=== PATIENT | female | born 1990 | race Caucasian/White ===

== ENCOUNTER → 2017-11-29 11:21 | Outpatient (CLI) | payer OTHER, MEDICAID, SELFPAY ==
[2017-11-29 12:04] LABS: Add Manual Diff / Slide Review NO; Basophils Percent Auto 1.1 % (0-2); Eosinophils Percent Auto 3.3 % (2-4); Hematocrit 43.3 % (36-46); Hemoglobin 14.7 g/dL (12.0-16.0); Lymphocytes Percent Auto 26.6 % (25-40); Mean Corpuscular HGB Conc 33.9 % (30-36); Mean Corpuscular Volume 91.6 fL (80-100); Monocytes Percent Auto 7.7 % (3-14); Neutrophils Absolute Auto 3600 /uL (3000-5900); Neutrophils Percent Auto 61.3 % (50-75); Platelet Count 256 X10^3/uL (150-400); Red Blood Cell Count 4.73 X10^6/uL (4.0-5.2); Red Cell Distribution Width 12.6 % (11.6-14.8); White Blood Cell Count 5.9 X10^3/uL (4.5-11.0)
[2017-11-29 12:27] LABS: Erythrocyte Sedimentation Rate 2 MM/HR (0-20)
[2017-11-29 12:55] LABS: Alanine Aminotransferase 17 IU/L (9-52); Albumin 4.7 g/dL (3.5-5.0); Alkaline Phosphatase 49 U/L (38-126); Aspartate Aminotransferase 18 IU/L (14-36); BUN Creatinine Ratio 16.3 (6-22); Bilirubin Total 0.6 mg/dL (0.2-1.3); Blood Urea Nitrogen 13 mg/dL (7-17); Calcium 9.8 mg/dL (8.4-10.2); Carbon Dioxide 31 mmol/L (22-32); Chloride 103 mmol/L (98-107); Estimated Glomerular Filt Rate > 60.0 mL/min (>60); Globulin 2.3 g/dL (1.7-4.1); Glucose 90 mg/dL (70-100); HEMOLYSIS < 15 (0-50); Potassium 4.6 mmol/L (3.4-5.1); Sodium 146 mmol/L (137-145)
[2017-11-29 13:02] LABS: C-Reactive Protein Quant < 0.5 mg/dL (<1.0); Rheumatoid Factor < 8.6 IU/mL (<12.0)
[2017-11-29 13:23] LABS: Thyroid Stimulating Hormone 1.12 uIU/mL (0.47-4.68)
[2017-12-04 08:10] LABS: ANA Screen NEGATIVE (Negative); DNA Antibody Crithidia IFA NEGATIVE (Negative); Rheumatoid Factor <14 IU/mL; Sjogren Antiboday SS-A <1.0 NEG AI (<1.0 NEGATIVE); Sjogren Antiboday SS-B <1.0 NEG AI (<1.0 NEGATIVE); Sm Antibody <1.0 NEG AI (<1.0 NEGATIVE); Sm/RNP Antibody <1.0 NEG AI (<1.0 NEGATIVE)
== END ==
PROVIDERS: PCP Family Medicine; Visit Provider Family Medicine
DX: M54.2 Cervicalgia (principal)
CPT/HCPCS: 36415; 80053; 84443; 85025; 85651; 86038; 86140; 86430

== ENCOUNTER → 2018-01-10 19:07 | Outpatient (CLI) | payer OTHER, MEDICAID, SELFPAY | PROVIDERS: PCP Family Medicine; Visit Provider Physician Assistant | DX: S60.420A Blister (nonthermal) of right index finger, initial encounter (principal) | CPT/HCPCS: 87070; 87075; 87077; 87147; 87186; 87205 ==

== ENCOUNTER → 2018-06-06 09:56 | Outpatient (CLI) | payer OTHER, MEDICAID, SELFPAY ==
--- NOTE | 2018-06-06 10:33 | DI.RAD.S_ITS ---
PROCEDURE: XR LUMBAR SPINE 2-3V INDICATIONS: pain TECHNIQUE: 4 views of the lumbar spine were acquired. COMPARISON: [facility], , L-SPINE 2-3 VIEWS, 05/07/2014, 17:10. FINDINGS: Bones: No fracture or focal osseous destruction. The disc spaces appear grossly preserved. There is minimal levocurvature which could be positional. Soft tissues: Overlying bowel gas pattern is normal. No suspicious soft tissue calcifications. IMPRESSION: Overall, unremarkable lumbar spine as above. Dictated by: Ashwin Patel M.D. on 06/06/2018 at 12:23 Approved by: Ashwin Patel M.D. on 06/06/2018 at 12:26
[2018-06-06 10:38] LABS: Add Manual Diff / Slide Review NO; Basophils Absolute Auto 100 /uL (0-100); Eosinophils Absolute Auto 300 /uL (0-450); Eosinophils Percent Auto 4.2 % (2-4); Hematocrit 46.5 % (36-46); Hemoglobin 15.7 g/dL (12.0-16.0); Lymphocytes Absolute Auto 1800 /uL (1100-4500); Lymphocytes Percent Auto 25.7 % (25-40); Mean Corpuscular HGB Conc 33.8 % (30-36); Mean Corpuscular Hemoglobin 30.9 PG (26-34); Mean Corpuscular Volume 91.3 fL (80-100); Monocytes Absolute Auto 500 /uL (0-900); Monocytes Percent Auto 6.7 % (3-14); Neutrophils Absolute Auto 4400 /uL (1500-7000); Neutrophils Percent Auto 62.4 % (50-75); Platelet Count 259 X10^3/uL (150-400); Red Blood Cell Count 5.09 X10^6/uL (4.0-5.2); Red Cell Distribution Width 12.4 % (11.6-14.8); White Blood Cell Count 7.1 X10^3/uL (4.5-11.0)
[2018-06-06 11:13] LABS: Alanine Aminotransferase 21 IU/L (9-52); Albumin 4.8 g/dL (3.5-5.0); Albumin Globulin Ratio 1.8 (1.0-2.8); Alkaline Phosphatase 55 U/L (38-126); Amylase 54 U/L (30-110); Aspartate Aminotransferase 15 IU/L (14-36); BUN Creatinine Ratio 14.4 (6-22); Bilirubin Total 0.6 mg/dL (0.2-1.3); Blood Urea Nitrogen 13 mg/dL (7-17); Calcium 9.9 mg/dL (8.4-10.2); Carbon Dioxide 30 mmol/L (22-32); Chloride 100 mmol/L (98-107); Estimated Glomerular Filt Rate > 60.0 mL/min (>60); Globulin 2.7 g/dL (1.7-4.1); Glucose 83 mg/dL (70-100); HEMOLYSIS < 15 (0-50); Lipase 79 U/L (23-300); Potassium 5.2 mmol/L (3.4-5.1); Sodium 140 mmol/L (137-145); Total Protein 7.5 g/dL (6.3-8.2)
== END ==
PROVIDERS: PCP Family Medicine; Visit Provider Family Medicine
DX: R10.9 Unspecified abdominal pain (principal)
CPT/HCPCS: 36415; 72100; 80053; 82150; 83013; 83690; 85025

== ENCOUNTER → 2018-06-07 08:42 | Outpatient (CLI) | payer OTHER, MEDICAID, SELFPAY ==
--- NOTE | 2018-06-07 08:43 | DI.US.S_ITS ---
PROCEDURE: US ABDOMEN COMPLETE INDICATIONS: ABDOMINAL PAIN TECHNIQUE: Real-time scanning was performed of the abdominal and retroperitoneal organs, with image documentation. COMPARISON: [facility], US, ABDOMEN COMPLETE, 04/14/2013, 14:44. FINDINGS: Liver: Liver is normal in size and homogeneous in echotexture. Gallbladder: There is no gallstone. No gallbladder wall thickening or pericholecystic fluid. No sonographic Esparza's sign. Biliary ducts: Intrahepatic bile ducts are non-dilated. Extrahepatic bile duct caliber measures 5 mm. Normal is 6-7 mm or less in diameter, or 10 mm or less post-cholecystectomy. Pancreas: Visualized portions of the pancreas are sonographically normal. Spleen: Spleen is normal in size and homogeneous in echotexture. Kidneys: Kidneys are normal in size and echotexture. Right kidney measures 11 cm long; left kidney measures 11.6 cm long. No hydronephrosis or nephrolithiasis. No solid masses. Aorta: Visualized aorta is normal in caliber at less than 3 cm. Iliacs: Proximal common iliac arteries are normal in caliber at less than 2.5 cm. IVC: Intrahepatic inferior vena cava is patent. Miscellaneous: No free abdominal fluid. IMPRESSION: Unremarkable ultrasound examination of abdomen. No finding to explain patient's symptoms. Dictated by: Joe Emmanuel M.D. on 06/07/2018 at 10:44 Approved by: Joe Emmanuel M.D. on 06/07/2018 at 10:45
== END ==
PROVIDERS: PCP Family Medicine; Visit Provider Family Medicine
DX: R10.9 Unspecified abdominal pain (principal)
CPT/HCPCS: 76700

== ENCOUNTER 2018-06-30 19:29 | Emergency (ER) | payer OTHER, MEDICAID, SELFPAY ==
[2018-06-30 19:57] VITALS: BP 115/75; PULSE 85; RESP 18; TEMP 36.6; O2SAT 100; BMI 24.5
--- NOTE | 2018-06-30 20:51 | DI.RAD.S_ITS ---
PROCEDURE: XR ABDOMEN MIN 2V INDICATIONS: bloating pain nausea TECHNIQUE: 2 views of the abdomen were acquired. COMPARISON: None. FINDINGS: Surgical changes and devices: None. Bowel: No pneumoperitoneum. The bowel gas pattern is normal. Soft tissues: No masses; visualized solid organ contours appear normal in size. No suspicious abdominal calcifications. Bones: No suspicious bony abnormalities. IMPRESSION: No acute process. Dictated by: Serafin Addison M.D. on 06/30/2018 at 21:12 Approved by: Serafin Addison M.D. on 06/30/2018 at 21:12
--- NOTE | 2018-06-30 21:51 | ED_ITS ---
HPI - Female Genitourinary General Chief complaint: Urogenital-Female Stated complaint: States Tubal Time Seen by Provider: 06/30/18 20:39 Source: patient Mode of arrival: ambulatory Limitations: no limitations History of Present Illness HPI Narrative: Patient is a 27-year-old female presents with abdominal bloating. She says she has a tubal ligation and she is 10 days late on her menstrual period. She also feels like her breasts are lactating. She has had a home test which are negative. She has no fever chills nausea or vomiting. She is wondering what is going on with her. Related Data Home Medications Medication Instructions Recorded Confirmed albuterol sulfate HFA 90 2 puff INHALATION Q4H PRN 08/14/17 06/12/18 mcg/actuation aerosol inhaler inhalation Previous Rx's Medication Instructions Recorded cyclobenzaprine 5 mg PO QHS PRN #30 tab 10/24/16 gabapentin 100 mg capsule 100 mg PO .TIDP #90 cap 11/29/17 ibuprofen 600 mg tablet 600 mg PO Q8H #60 tab 02/08/18 lamotrigine 200 mg tablet 200 mg PO QDAY #30 tab 04/18/18 alprazolam 0.25 mg tablet See Rx Instructions PO .COMPLEX 05/21/18 PRN #60 tab hydrocodone 5 mg-acetaminophen 325 1 - 2 tab PO Q6HP PRN #30 tab 06/05/18 mg tablet triamcinolone acetonide 0.1 % 1 applictn TOP BID #15 gram 06/06/18 topical cream hydroxyzine HCl 25 mg tablet 25 mg PO TID-QID PRN #90 tab 06/12/18 Allergies Allergy/AdvReac Type Severity Reaction Status Date / Time promethazine [PROMETHAZINE] Allergy Severe panic Verified 06/30/18 19:56 attach citalopram [CITALOPRAM] Allergy Mild INCREASE Verified 06/30/18 19:56 ANXIETY/ IRRITABLE droperidol [DROPERIDOL] Allergy Mild UNKNOWN Verified 06/30/18 19:56 nifedipine [NIFEDIPINE] Allergy Mild HEADACHE, Verified 06/30/18 19:56 VOMITING red dye [RED DYE] Allergy Mild N & V, Verified 06/30/18 19:56 MIGRAINE, HIVES terbutaline [TERBUTALINE] Allergy Mild VOMITING, Verified 06/30/18 19:56 HEADACHE codeine [CODEINE] Allergy Unknown unknonw Verified 06/30/18 19:56 [facility] Surgical History Status post dilation and curettage Status post dilation and curettage (~2007) Status post dilation and curettage (~2011) Status post laparoscopy (02/25/16) Status post tubal ligation Family History Mother Hypothyroid Hypertension Grandmother Breast cancer Colon cancer Social History number of children: 4 household members: spouse pets and animals: No education level: other seatbelt use: always helmet use: Yes water heater temp set < 120 deg: Yes working smoke detector in home: Yes fire extinguisher in home: Yes carbon monox detector in home: No firearms in home: No Smoking Status: Current every day smoker alcohol intake: current substance use type: does not use Family History Mother Hypothyroid Hypertension Grandmother Breast cancer Colon cancer Social History number of children: 4 household members: spouse pets and animals: No education level: other seatbelt use: always helmet use: Yes water heater temp set < 120 deg: Yes working smoke detector in home: Yes fire extinguisher in home: Yes carbon monox detector in home: No firearms in home: No Smoking Status: Current every day smoker alcohol intake: current substance use type: does not use Exam Initial Vital Signs Initial Vital Signs: Vital Signs Temperature 97.8 F 06/30/18 19:57 Pulse Rate 85 06/30/18 19:57 Respiratory Rate 18 06/30/18 19:57 Blood Pressure 115/75 06/30/18 19:57 Pulse Oximetry 100 06/30/18 19:57 GENERAL: Well-appearing, well-nourished and in no acute distress. HEENT: Head atraumatic,EOMI, pupils reactive, CHEST: The of breast have nipple piercings but no active or discharge from nipples. CARDIOVASCULAR: Regular rate and rhythm without murmurs, rubs or gallops. RESPIRATORY: Breath sounds equal bilaterally, no wheezes rales or rhonchi. ABDOMEN: Soft, pre mild lower abdominal tenderness no localization guarding or rebound EXTREMITIES: Normal range of motion, no clubbing or edema. Neurovascularly intact NEUROLOGICAL: Alert and oriented x4.Normal gait and speech. SKIN: Warm, dry, no laceration, no petechiae, no rashes or lesions. Course Orders Ordered: ED Orders 06/30/18 20:51 XR abdomen min 2V Stat Vital Signs - 8 hr 06/30/18 19:57 06/30/18 22:13 Temperature 97.8 F Pulse Rate 85 78 Respiratory Rate 18 14 Blood Pressure 115/75 Blood Pressure [Right Arm] 104/63 Pulse Oximetry 100 99 MDM - Female Genitourinary Lab Data Point of Care Testing Test Results Negative Urine Dip Bedside Urine Glucose Negative Bedside Urine Bilirubin - Negative Bedside Urine Ketone - Negative Urine Specific Elton 1.020 Bedside Urine Occult Blood - Negative Bedside Urine pH 7.0 Bedside Urine Protein - Negative Bedside Urine Urobilinogen - Negative Bedside Urine Nitrite - Negative Bedside Urine Leukocytes - Negative Esterase Imaging Data Abdominal x-ray: Radiologist's impression: PROCEDURE: XR ABDOMEN MIN 2V INDICATIONS: bloating pain nausea TECHNIQUE: 2 views of the abdomen were acquired. COMPARISON: None. FINDINGS: Surgical changes and devices: None. Bowel: No pneumoperitoneum. The bowel gas pattern is normal. Soft tissues: No masses; visualized solid organ contours appear normal in size. No suspicious abdominal calcifications. Bones: No suspicious bony abnormalities. IMPRESSION: No acute process. Dictated by: Serafin Addison M.D. on 06/30/2018 at 21:1 MDM Narrative Medical decision making narrative: Patient is not no active . At this time recommend outpatient follow-up Discharge Plan Departure Patient Disposition: Home Clinical Impression: Abdominal pain Qualifiers: Abdominal location: lower abdomen, unspecified Qualified Code(s): R10.30 - Lower abdominal pain, unspecified Discharge Date/Time: 06/30/18 22:21 Interventions: ED Discharge Assessment Last Done: 06/30/18 22:20 Instructions: DI for Abdominal Pain-Adult Activity Restrictions/Additional Instructions: *You have been diagnosed with abdominal discomfort *What to do: At this time urine is negative no sign of infection x- ray also negative. I suspect your menstrual. Will start in the next few days. If you continue to have breast discharge follow-up with Dr. Hudson for possible hormone test *Continue to take medications as directed *Follow up with your primary care provider in 2-3 days *Return to ER if you should have any new, worsening or concerning symptoms Prescriptions: No Action lamotrigine 200 mg tablet 200 mg PO QDAY Qty: 30 RF: 2 cyclobenzaprine 5 MG tablet 5 mg PO QHS PRNQty: 30 RF: 5 ibuprofen 600 mg tablet 600 mg PO Q8H Qty: 60 RF: 1 alprazolam 0.25 mg tablet See Rx Instructions PO .COMPLEX PRN (Reason: anxiety) Qty: 60 RF: 0 albuterol sulfate [Ventolin HFA] 90 mcg/actuation HFA aerosol inhaler 2 puff INHALATION Q4H PRN (Reason: shortness of breath or wheezing) RF: 0 triamcinolone acetonide 0.1 % cream 1 applictn TOP BID Qty: 15 RF: 3 hydrocodone-acetaminophen 5-325 mg tablet 1 - 2 tab PO Q6HP PRN (Reason: pain) Qty: 30 RF: 0 gabapentin 100 mg capsule 100 mg PO .TIDP Qty: 90 RF: 5 Hold Instructions: not taking hydroxyzine HCl 25 mg tablet 25 mg PO TID-QID PRN (Reason: anxiety) Qty: 90 RF: 5 Referrals: Jim Hudson MD [Primary Care Provider] -
[2018-06-30 22:13] VITALS: BP 104/63; PULSE 78; RESP 14; O2SAT 99
== END 2018-06-30 22:21 | disposition home or self-care (01) ==
PROVIDERS: Emergency Provider Emergency Medicine; PCP Family Medicine
DX: R10.30 Lower abdominal pain, unspecified (principal)
CPT/HCPCS: 74019; 81003; 81025; 99283

== ENCOUNTER → 2018-09-13 20:03 | Outpatient (CLI) | payer OTHER, MEDICAID, SELFPAY | PROVIDERS: PCP Family Medicine; Visit Provider Physician Assistant | DX: J02.9 Acute pharyngitis, unspecified (principal) | CPT/HCPCS: 87070; 87077; 87147 ==

== ENCOUNTER → 2018-11-21 10:55 | Outpatient (CLI) | payer OTHER, MEDICAID, SELFPAY ==
[2018-11-21 12:35] LABS: HIV 1 & 2 Ab/Ag 4th Gen Combo NEGATIVE (NEGATIVE)
[2018-11-24 08:58] LABS: Hepatitis A Antibody IgM NONREACTIVE (NONREACTIVE); Hepatitis Acute Panel Interp 0.01; Hepatitis B Core Antibody IgM NONREACTIVE (NONREACTIVE); Hepatitis B Surface Antigen NONREACTIVE (NONREACTIVE); Hepatitis C Antibody NONREACTIVE
[2018-11-25 00:27] LABS: RPR Screen Nonreactive (Nonreactive)
== END ==
PROVIDERS: PCP Family Medicine; Visit Provider Registered Nurse
DX: Z11.3 Encounter for screening for infections with a predominantly sexual mode of transmission (principal)
CPT/HCPCS: 36415; 80074; 86592; 87389

== ENCOUNTER 2019-01-02 08:45 | Day surgery (SDC) | payer OTHER, MEDICAID, SELFPAY ==
[2018-12-31 08:39] VITALS: BMI 26.9
[2019-01-02] VITALS (10 sets, daily range): BP systolic 95–101; BP diastolic 55–65; PULSE 67–107; RESP 14–20; TEMP 36–36.6; O2SAT 95–100; BMI 26.9
--- NOTE | 2019-01-02 | PATH_ITS ---
[facility] Accession Number: [id number] . 01 Material submitted: . fallopian tube - PORTIONS OF RIGHT AND LEFT FALLOPIAN TUBES . 01 Clinical history: . DYSMENORRHEA, UNSPECIFIED; PELVIC AND PERINEAL PAIN . 02 Diagnosis: Portions of Right and Left Fallopian Tubes, Bilateral Salpingectomy: Fallopian tubes x2 with no significant histomorphologic abnormality. Negative for aytpia or malignancy. MRV 01/06/2019 1330 Local . 02 Electronically signed: . Leonor Allen MD, Pathologist NPI- [id number] . 01 Gross description: . Received in formalin, labeled both R + L fallopian tubes, are two fimbriated fallopian tube segments (segment #1: length-2.0 cm, diameter-0.5 cm; segment #2: length-3.5 cm, diameter-0.5 cm) with moore smooth shiny serosa and moore unremarkable lumens. Section code: (A1) segment #1, brand representative serial sections; (A2) fimbria #1, bivalved, entirely submitted; (A3) segment #2, brand representative serial sections; (A4) fimbria #2, bivalved, entirely submitted. ([id number]) /MRV 01/03/2019 1319 Local . 02 Pathologist provided ICD-10: N94.6, R10.2 . 02 CPT . 758844 Performed at: 01 [facility] [address] [place] [address], [place], [place] [id number] MD Matt Ramirez MD Phone: [phone] Performed at: 02 [facility] [place] [address] [place], [place] [id number] MD Kellee Luna MD Phone: [phone]
--- NOTE | 2019-01-02 09:45 | PM.HP.1 ---
History of Present Illness History of Present Illness Date Patient Seen: 01/02/19 Time Patient Seen: 09:45 Chief complaint: [id number] Narrative: Patient is a 28-year-old 6 para 4 with dysmenorrhea and persistent right lower quadrant pain since having her to tubal ligation Patient History Family & Social History Social History: household members spouse Tobacco & Substance use: Smoking Status Current every day smoker alcohol intake current alcohol intake frequency a few times a week Substance Use Type marijuana Meds Home Medications and Allergies Home Medications Medication Instructions Recorded Confirmed Type lamotrigine 200 mg tablet 200 mg PO QDAY #30 tab 10/14/18 01/01/19 Rx alprazolam 0.25 mg tablet See Rx Instructions PO .COMPLEX 11/15/18 01/01/19 Rx PRN #60 tab hydrocodone 5 mg-acetaminophen 325 1 - 2 tab PO Q6HP PRN #30 tab 12/23/18 01/01/19 Rx mg tablet cyclobenzaprine 5 mg tablet See Rx Instructions .ROUTE 01/01/19 Rx .COMPLEX #30 tablet ibuprofen 600 mg tablet See Rx Instructions .ROUTE 01/01/19 01/01/19 Rx .COMPLEX #60 tablet Allergies Allergy/AdvReac Type Severity Reaction Status Date / Time promethazine [PROMETHAZINE] Allergy Severe panic Verified 01/02/19 09:08 attach citalopram [CITALOPRAM] Allergy Mild INCREASE Verified 01/02/19 09:08 ANXIETY/ IRRITABLE droperidol [DROPERIDOL] Allergy Mild UNKNOWN Verified 01/02/19 09:08 nifedipine [NIFEDIPINE] Allergy Mild HEADACHE, Verified 01/02/19 09:08 VOMITING red dye [RED DYE] Allergy Mild N & V, Verified 01/02/19 09:08 MIGRAINE, HIVES terbutaline [TERBUTALINE] Allergy Mild VOMITING, Verified 01/02/19 09:08 HEADACHE Exam Vital Signs (past 8 hours): - 01/02/19 09:18 Temperature 97.9 F Pulse Rate 77 Respiratory Rate 16 Blood Pressure 95/63 Pulse Oximetry 100 Oxygen Delivery Method Room Air Narrative Exam Narrative: HEENT: No thyromegaly, no anterior cervical or supraclavicular lymphadenopathy. Lungs:Clear to auscultation bilaterally, no wheezes. Cardiovascular: Regular rate and rhythm, no murmurs, rubs, or gallops. Abdomen: Well-healed laparoscopy scars. No hepatosplenomegaly. No masses palpable. External genitalia: Normal Vagina: Normal Cervix: Normal Bimanual exam: 6 Week size uterus. Mobile. Rectal: No masses. Assessment & Plan Assessment & Plan narrative: Assessment: 28-year-old 6 para 4 with dysmenorrhea and persistent right lower quadrant pain since tubal ligation Plan: Laparoscopic removal of remaining portions of fallopian tubes The risks, benefits, and alternatives to the procedure were explained to the patient. The risks including bleeding, infection, injury to the bowel, bladder, or ureters. She understands these risks and agrees to proceed. A full par Q was held and consent form was signed. Time Spent With Patient Time with patient: 15-24 minutes
--- NOTE | 2019-01-02 09:47 | PM.PREOP ---
Pre-operative Note Interval Note History & Physical reviewed/Exam performed by Physician: Yes Changes to H&P: No
--- NOTE | 2019-01-02 10:16 | SUR.OPER ---
Lithotomy on padded OR bed, head on pillow, arms secured on padded arm boards at <90 degrees abduction. Legs secured in padded yellow fins stirrups.
[2019-01-02] MEDS: BUPIVACAINE 0.5% W/ EPI (PF) VIAL 30 ML INJ (10:21)
[2019-01-02] MEDS: LORazepam 2 MG/ML INJ 0.25 MG IV ×2 (10:45→11:04)
[2019-01-02] MEDS: HYDROMORPHONE 2 MG INJ 0.5 MG IV ×4 (10:45→11:00)
[2019-01-02] MEDS: ONDANSETRON 4 MG/2 ML INJ IV (10:55)
[2019-01-02] MEDS: LACTATED RINGERS 1,000 ML 42 ML IV (11:03)
--- NOTE | 2019-01-02 12:39 | SUR.PHASEII ---
On d/c pt states norco makes her nauseated, she would like Rx for zofran or percocet. Pt left and we talked with Dr Dolan when she was available. Dr Dolan states she prescribed norco since that is what pt had at home. states Rx for zofran ok. Called Rx for 8mg zofran ODT tabs TID PRN #10 no refills called to [facility] [place] for pt's prefered pharmacy.
--- NOTE | 2019-01-03 06:44 | PM.GYNOP.1 ---
Operative Date/Time/Diagnoses Date of procedure: 01/02/19 Time of procedure: 10:30 Pre-op diagnosis: Dysmenorrhea Persistent right lower quadrant pain Status post tubal ligation Post-op diagnosis: same Procedure & Clinicians Procedure: Procedures Operation Date: 01/02/19 09:45 Actual Procedures Side Surgeon p Dx Laparoscopy w/Removal of tubes that remain Irene Dolan MD Indications: Persistent right lower quadrant pain Dysmenorrhea Status post tubal ligation Surgeon: Irene Dolan Anesthesia Type: General Operative Notes Findings: 6 week size anteverted uterus Bilateral tubes status post ligation Normal gallbladder and liver Normal appendix Right ovary normal Left ovary with a 2 cm cyst Closure Type: primary Specimen(s): portion of left tube and portion of right tube Applied: catheter Estimated blood loss (mL): 5 Blood products transfused: none Procedure in detail: After informed consent was obtained, the patient was taken to the operating room where she was placed in the dorsal supine position. After adequate general endotracheal anesthesia was achieved, she was placed in the dorsal lithotomy position, and prepped and draped in the usual sterile fashion. A time-out was performed. A bivalve speculum was placed into the vagina and the anterior lip of the cervix grasped with a single-tooth tenaculum. The cervical os was sequentially dilated until the Zumi uterine manipulator could pass easily into the endometrial cavity. The single-tooth tenaculum was removed from the anterior lip of the cervix. The bivalve speculum was removed from the vagina. Attention was then turned to the abdomen where 6 cc of 0.5% Marcaine with epinephrine were injected in the umbilical fold. A 5 mm incision was made. The Veress needle was placed into the peritoneal cavity, and its placement confirmed with aspiration and drop test. The abdominal cavity was insufflated with 3.1 L of CO2. The Veress needle was removed, and a 5 mm trocar was placed without difficulty. A 2nd incision was made through a previous incision above the pubic symphysis after 6 cc of 0.5% Marcaine with epinephrine were injected. A 5 mm trocar was placed. A 3rd incision was placed midway between the pubic symphysis and umbilicus, 4 cm lateral to the midline, and a 3rd 5 mm trocar was placed. The portions of the right tube were grasped with an atraumatic grasper. Using the PlasmaKinetic was settings of 40 w, the meso salpinx was cauterized and cut all the way down to the cornua of the uterus. And the tube was amputated at the cornua. This was removed through the suprapubic trocar. This was repeated on the patient's left tube. Hemostasis was achieved. Using the PlasmaKinetic, the cyst on the end of the left ovary was excised. The PlasmaKinetic was used for hemostasis. The instruments were removed from the uterus. The CO2 was allowed to escape. The incisions were repaired with 4 0 Biosyn in a subcuticular fashion. Steri-Strips, 2 x 2, and op site were placed. The Zumi uterine manipulator was removed from the uterus. Sponge, lap, and instrument counts were correct x2. The patient tolerated the procedure well, and was taken to PACU in stable condition. Complications: none Post-operative Condition: stable Disposition: PACU Plan for aftercare: Home after recovery
== END 2019-01-02 12:18 | disposition home or self-care (01) ==
PROVIDERS: PCP Family Medicine; Visit Provider Obstetrics & Gynecology
PROC: (CPT 49320; principal; 2019-01-02 09:45)
DX: N94.6 Dysmenorrhea, unspecified (principal); R10.2 Pelvic and perineal pain; F17.210 Nicotine dependence, cigarettes, uncomplicated
CPT/HCPCS: 58661; J1100; J1170; J1885; J2060; J2250; J2405; J2704; J3010

== ENCOUNTER 2019-01-03 13:14 | Emergency (ER) | payer OTHER, MEDICAID, SELFPAY ==
[2019-01-03 13:17] VITALS: BP 117/80; PULSE 122; RESP 18; TEMP 37.3; O2SAT 98
--- NOTE | 2019-01-03 14:13 | ED.RECABL ---
HPI - Recheck/Abnormal Lab/Rx General Chief Complaint: Recheck/Abnormal Lab/Rx Stated Complaint: surgery yesterday, states medicine not helping Time Seen by Provider: 01/03/19 14:00 Source: patient Mode of arrival: Ambulatory Limitations: no limitations History of Present Illness HPI narrative: 28-year-old female presents with her in the chief complaint of right-sided abdominal pain. She had a laparoscopic gynecologic procedure yesterday that went quite well (of RD spoken with the surgeon). The patient has right-sided abdominal pain with radiation to her shoulder which is very classic for a gas type pain. She denies fever chills and has no nausea or vomiting. She had a bowel movement yesterday and has had no trouble urinating. She has had a very small amount of blood from 1 incision site but is otherwise well and free of complaint. She had spoken with the surgical office and in the end was instructed to come see us for further evaluation MD complaint: wound re-check Initial visit (ago): day(s) Returns today for: request for prescription Symptoms since prior visit: worsening pain Associated symptoms: none Treatments prior to arrival: given pain meds on Related Data Home Medications Medication Instructions Recorded Confirmed alprazolam 0.25 - 0.5 mg PO Q6H PRN 01/03/19 01/03/19 cyclobenzaprine 5 mg PO BEDTIME PRN 01/03/19 01/03/19 ibuprofen 600 mg PO Q8H 01/03/19 01/03/19 lamotrigine 200 mg PO DAILY 01/03/19 01/03/19 Previous Rx's Medication Instructions Recorded hydrocodone-acetaminophen [[place]] 1 tab PO Q4-6H PRN #14 tab 01/02/19 oxycodone 5 mg PO Q4-6H PRN #10 tab 01/03/19 Allergies Allergy/AdvReac Type Severity Reaction Status Date / Time promethazine [PROMETHAZINE] Allergy Severe panic Verified 01/02/19 09:08 attach citalopram [CITALOPRAM] Allergy Mild INCREASE Verified 01/02/19 09:08 ANXIETY/ IRRITABLE droperidol [DROPERIDOL] Allergy Mild UNKNOWN Verified 01/02/19 09:08 nifedipine [NIFEDIPINE] Allergy Mild HEADACHE, Verified 01/02/19 09:08 VOMITING red dye [RED DYE] Allergy Mild N & V, Verified 01/02/19 09:08 MIGRAINE, HIVES terbutaline [TERBUTALINE] Allergy Mild VOMITING, Verified 01/02/19 09:08 HEADACHE Review of Systems Constitutional Constitutional: Denies chills, Denies fatigue, Denies fever(s), Denies frequent falls, Denies lethargy and Denies weakness Eyes Eyes: Denies change in vision, Denies eye discharge, Denies irritation and Denies loss of vision ENT Ears, Nose, Mouth, and Throat: Denies change in voice, Denies dizziness, Denies neck pain, Denies sore throat and Denies throat swelling Cardiovascular Cardiovascular: Denies chest pain, Denies irregular heart rhythm, Denies lightheadedness, Denies palpitations, Denies dyspnea, Denies dyspnea on exertion and Denies orthopnea Respiratory Respiratory: Denies cough, Denies dyspnea, Denies dyspnea on exertion and Denies wheezing Gastrointestinal Gastrointestinal: Reports abdominal pain, Denies change in bowel habits, Denies diarrhea, Denies nausea and Denies vomiting Genitourinary Genitourinary: Denies hematuria, Denies flank pain, Denies urinary incontinence and Denies urinary urgency Musculoskeletal Musculoskeletal: Denies back pain, Denies muscle weakness, Denies neck pain, Denies numbness and Denies tingling Integumentary/Breasts Skin/Breast: Denies pruritus, Denies erythema, Denies rash and Denies wounds Neurologic Neurologic: Denies behavioral changes, Denies confusion, Denies dizziness, Denies frequent falls, Denies loss of vision, Denies numbness, Denies tingling and Denies weakness Psychiatric Psychiatric: Denies anxiety, Denies behavioral changes, Denies confusion, Denies depression, Denies homicidal ideation and Denies suicidal ideation Endocrine Endocrine: Denies fatigue, Denies flushing and Denies palpitations Hematologic/Lymphatic Hematologic/Lymphatic: Denies easy bruising Allergic/Immunologic Allergic/Immunologic: Denies urticaria, Denies throat swelling and Denies wheezing PFSH Surgical History Status post dilation and curettage Status post dilation and curettage (~2007) Status post dilation and curettage (~2011) Status post laparoscopy (02/25/16) Status post tubal ligation Family History Mother Hypothyroid Hypertension Grandmother Breast cancer Colon cancer Social History number of children: 4 household members: spouse pets and animals: No education level: other seatbelt use: always helmet use: Yes water heater temp set < 120 deg: Yes working smoke detector in home: Yes fire extinguisher in home: Yes carbon monox detector in home: No firearms in home: No Smoking Status: Current every day smoker alcohol intake: current substance use type: does not use Family History Mother Hypothyroid Hypertension Grandmother Breast cancer Colon cancer Social History number of children: 4 household members: spouse pets and animals: No education level: other seatbelt use: always helmet use: Yes water heater temp set < 120 deg: Yes working smoke detector in home: Yes fire extinguisher in home: Yes carbon monox detector in home: No firearms in home: No Smoking Status: Current every day smoker alcohol intake: current substance use type: does not use Exam Narrative Exam Narrative: GEN: AOx3 and in mild distress, tearful and clutching her abdomen EYES: Pupils are equal, round, and reactive to light and accommodation. Extraoccular muscles are intact bilaterally. There is no subconjunctival hemorrhage or exudate. CHEST: Lungs are clear to auscultation bilaterally and free of wheezes, rales, or rhonchi. Heart rate is regular rhythm, there are no murmurs, clicks, rubs, or gallops. There is no chest wall tenderness. ABD: Abdomen is soft and nontender. There is no guarding or rebound. Bowel sounds are normal in all 4 quadrants. There is no mass or organomegaly. Incision sites are clean, dry and intact. The midline laparoscopic incision has had a small amount of blood which has been absorbed by surgical bandage. EXT: Full painless ROM of all extremities with no loss of sensation or strength. SKIN: Warm, pink, and dry. No erythema or rash Initial Vital Signs Initial Vital Signs: Vital Signs Temperature 99.1 F 01/03/19 13:17 Pulse Rate 122 H 01/03/19 13:17 Respiratory Rate 18 01/03/19 13:17 Blood Pressure 117/80 01/03/19 13:17 Pulse Oximetry 98 01/03/19 13:17 Course Orders Ordered: ED Orders 01/03/19 15:25 XR acute abdomen series Stat Discontinued Medications Oxycodone/Acetaminophen (Percocet 5/325) 1 tab PO NOW ONE Stop: 01/03/19 15:25 Last Admin: 01/03/19 15:43 Dose: 1 tab Documented by: BTONER Consultations Consultation #1: Discussion with Dr. Dolan. We sure the pain that the patient appears as expected in the postoperative phase. I will administer a small prescription of Percocet and she understands that the emergency department nor surgery will refill this prescription and that she has to make it last Vital Signs Vital signs: Vital Signs - 8 hr 01/03/19 13:17 01/03/19 16:02 Temperature 99.1 F Pulse Rate 122 H 80 Respiratory Rate 18 17 Blood Pressure 117/80 103/66 Pulse Oximetry 98 99 MDM - Recheck/Abnormal Lab/Rx Imaging Data Abdominal x-ray: Attestation: I personally reviewed and interpreted this imaging study as follows: My impression: free air under diaphragm, not to be unexpected. Discharge Plan Departure Patient Disposition: Home Clinical Impression: Post-operative pain Discharge Date/Time: 01/03/19 16:01 Activity Restrictions/Additional Instructions: *You have been diagnosed with [postoperative pain] *What to do: *Take medications as directed *Follow up with your primary care provider in 2-3 days, call for an appointment. Let them know you were seen in the Emergency Department and that we ask that you be seen in follow up *Return to ER if you should have any new, worsening or concerning symptoms Prescriptions: New oxycodone 5 mg tablet 5 mg PO Q4-6H PRN (Reason: pain) Qty: 10 RF: 0 No Action hydrocodone-acetaminophen [[place]] 5-325 mg tablet 1 tab PO Q4-6H PRN (Reason: pain) Qty: 14 RF: 0 alprazolam 0.25 mg tablet 0.25 - 0.5 mg PO Q6H PRN (Reason: anxiety) RF: 0 lamotrigine 200 mg tablet 200 mg PO DAILY RF: 0 ibuprofen 600 mg tablet 600 mg PO Q8H RF: 0 cyclobenzaprine 5 mg tablet 5 mg PO BEDTIME PRN (Reason: pain) RF: 0 Referrals: Jim Hudson MD [Primary Care Provider] -
--- NOTE | 2019-01-03 15:25 | DI.RAD.S_ITS ---
PROCEDURE: XR ACUTE ABDOMEN SERIES INDICATIONS: Abdominal pain, surgery yesterday TECHNIQUE: One view chest and two views of the abdomen were acquired. COMPARISON: None. FINDINGS: Surgical changes and devices: None. Chest: Lungs are clear. There is subdiaphragmatic free air. Heart size is normal. No pleural effusions. No pneumoperitoneum. Abdomen: Bowel gas pattern is normal. No suspicious calcifications. Visualized solid organ contours appear normal. Bones: No suspicious bony lesions. IMPRESSION: Sub-diaphragmatic free air is noted, and the findings were immediately called to the emergency room physician caring for the patient. He reports the patient had undergone a laparoscopy yesterday, and the amount of gas present is within the range of expected. No bowel obstruction is found. Dictated by: Farooq Gayle M.D. on 01/03/2019 at 15:51 Approved by: Farooq Gayle M.D. on 01/03/2019 at 15:54
[2019-01-03] MEDS: OXYCODONE/ACETAMINOPHEN 5/325 TABLET 1 TAB PO (15:43)
[2019-01-03 16:02] VITALS: BP 103/66; PULSE 80; RESP 17; O2SAT 99
== END 2019-01-03 16:01 | disposition home or self-care (01) ==
PROVIDERS: Emergency Provider Emergency Medicine; PCP Family Medicine
DX: G89.18 Other acute postprocedural pain (principal)
CPT/HCPCS: 74022; 99282; 99283

== ENCOUNTER → 2019-01-14 13:42 | Outpatient (CLI) | payer OTHER, MEDICAID, SELFPAY | PROVIDERS: PCP Family Medicine; Visit Provider Nurse Practitioner Family | DX: N89.8 Other specified noninflammatory disorders of vagina (principal) | CPT/HCPCS: 87210 ==

== ENCOUNTER → 2019-05-28 13:17 | Outpatient (CLI) | payer OTHER, MEDICAID, SELFPAY ==
[2019-05-28 15:20] LABS: Thyroid Stimulating Hormone 0.89 uIU/mL (0.47-4.68)
== END ==
PROVIDERS: PCP Family Medicine; Referring Provider Family Medicine; Visit Provider Family Medicine
DX: R63.5 Abnormal weight gain (principal); Z83.49 Family history of other endocrine, nutritional and metabolic diseases
CPT/HCPCS: 36415; 84443

== ENCOUNTER 2019-06-08 01:40 | Emergency (ER) | payer OTHER, MEDICAID, SELFPAY ==
[2019-06-08 01:40] VITALS: BP 158/69; PULSE 102; RESP 19; TEMP 36.7; O2SAT 96; BMI 27.4
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
--- NOTE | 2019-06-08 02:23 | PC.NURSE ---
Patient standing in her sons doorway chatting with him. Patient is talking loudly and swearing frequently.
--- NOTE | 2019-06-08 02:30 | PC.NURSE ---
Pt had been standing at door, I informed pt, I would be in to speak with her as soon as I had completed some charting. Continued to stand at doorway of room. after a few minutes, asked about her son who was in another room. Another nurse instructed pt to go back into room. Pt then began to yell at nurse, cursing and being aggressive toward nurse. Son came out of his room, to try and calm patient down. Was able to get son back to room, and pt into her own room. In room with patient, who continued to yell about the other nurse saying multiple times He doesn't know what I'm fucking going throw He doesn't know. Provider in room at this time. Pt wouldn't talk about her self or her situation until she was know her son was ok. Provider informed she would go talk to son. After her leaving pt, calmed down and though continued to talk about finding out what can help her so she could help her son. Pt was able to finally talk about tonight and what happened. Pt able to be calm. allowed to see son at this time. Pt agreeable to take ativan and zyprexa at this time after seeing son was calm and taken care of. Talked to spouse on the phone, states has been working on in patient placement over the next few weeks. After incident last night, he states patient looking for place sooner.
[2019-06-08] MEDS: LORazepam 0.5 MG TABLET 2 MG PO (02:33)
[2019-06-08] MEDS: OLANZapine ODT 10 MG TAB PO (02:33)
--- NOTE | 2019-06-08 02:51 | PC.NURSE ---
Patient laying down on bed with room lights off, door is open to hallway.
--- NOTE | 2019-06-08 03:37 | PC.NURSE ---
Patient is resting on bed.
[2019-06-08 04:10] VITALS: PULSE 94; RESP 15; O2SAT 100
--- NOTE | 2019-06-08 04:47 | PC.NURSE ---
Patients room door is open to hallway.
--- NOTE | 2019-06-08 06:51 | PC.NURSE ---
Patient sleeping, door is open to hallway.
[2019-06-08 07:45] VITALS: BP 99/57; PULSE 65; RESP 15; TEMP 36.4; O2SAT 100
[2019-06-08 07:47] LABS: Add Manual Diff / Slide Review NO; Basophils Absolute Auto 100 /uL (0-100); Basophils Percent Auto 0.7 % (0-2); Eosinophils Absolute Auto 300 /uL (0-450); Eosinophils Percent Auto 3.7 % (2-4); Hematocrit 44.9 % (36-46); Hemoglobin 15.6 g/dL (12.0-16.0); Lymphocytes Absolute Auto 2200 /uL (1100-4500); Lymphocytes Percent Auto 28.5 % (25-40); Mean Corpuscular HGB Conc 34.7 % (30-36); Mean Corpuscular Hemoglobin 31.3 PG (26-34); Mean Corpuscular Volume 90.1 fL (80-100); Monocytes Absolute Auto 400 /uL (0-900); Monocytes Percent Auto 5.7 % (3-14); Neutrophils Absolute Auto 4600 /uL (1500-7000); Neutrophils Percent Auto 61.4 % (50-75); Platelet Count 264 X10^3/uL (150-400); Red Blood Cell Count 4.98 X10^6/uL (4.0-5.2); Red Cell Distribution Width 13.1 % (11.6-14.8); White Blood Cell Count 7.6 X10^3/uL (4.5-11.0)
[2019-06-08 07:59] LABS: Alanine Aminotransferase 23 IU/L (<35); Albumin 4.7 g/dL (3.5-5.0); Albumin Globulin Ratio 1.6 (1.0-2.8); Alkaline Phosphatase 64 U/L (38-126); Aspartate Aminotransferase 31 IU/L (14-36); BUN Creatinine Ratio 21.4 (6-22); Bilirubin Total 0.6 mg/dL (0.2-1.3); Blood Urea Nitrogen 15 mg/dL (7-17); Carbon Dioxide 27 mmol/L (22-32); Chloride 107 mmol/L (98-107); Estimated Glomerular Filt Rate > 60.0 mL/min (>60); Ethanol (ETOH) 100 mg/dL; Glucose 73 mg/dL (70-100); HEMOLYSIS < 15 (0-50); Sodium 146 mmol/L (137-145); Total Protein 7.7 g/dL (6.3-8.2)
--- NOTE | 2019-06-08 08:16 | PC.NURSE ---
Patient is sleeping, room lights are off with door open
[2019-06-08 08:37] LABS: Thyroid Stimulating Hormone 3.87 uIU/mL (0.47-4.68)
--- NOTE | 2019-06-08 10:16 | PC.NURSE ---
Patient is still sleeping with visible chest rise, lights are off on the room and door is open.
[2019-06-08 11:20] VITALS: BP 117/56; PULSE 87; RESP 14; O2SAT 98
--- NOTE | 2019-06-08 12:50 | PC.NURSE ---
continue with close observation, pt sleeping with spontaneous respiration, skin pink.
[2019-06-08 13:05] LABS: Appearance Urine UA CLEAR; Bilirubin Urine UA NEGATIVE (NEGATIVE); Color Urine UA YELLOW; Glucose Urine UA NEGATIVE (Negative); Ketones Urine UA 2+ (NEGATIVE); Leukocyte Esterase Urine UA TRACE (NEGATIVE); Nitrite Urine UA NEGATIVE (Negative); Occult Blood Urine UA 3+ (Negative); Protein Urine UA NEGATIVE (Negative); Specific Gravity Urine UA 1.025 (1.000-1.035); Urobilinogen Urine UA 0.2 E.U./dL (0.2)
[2019-06-08 13:06] LABS: Pregnancy Test Urine Negative (Negative)
[2019-06-08 13:10] LABS: UR Morphine/Opiate cutoff 300 Negative (Negative); Ur Creatinine Normal (Normal); Ur Specific Gravity Normal (Normal); Urine Amphetamines Negative (Negative); Urine Barbiturates Negative (Negative); Urine Benzodiazepines Negative (Negative); Urine Cocaine Positive (Negative); Urine MDMA Negative (Negative); Urine Methadone Negative (Negative); Urine Methamphetamines Negative (Negative); Urine Oxycodone Negative (Negative); Urine Phencyclidine Negative (Negative); Urine Tetrahydrocannabinol Negative (Negative); Urine Tricyclic Antidepressant Negative (Negative); Urine pH Normal (Normal)
[2019-06-08 13:11] LABS: RBC Urine 5-10/HPF (0-5/HPF); Squamous Epithelial Cell Urine 5-10 /HPF (0-5/HPF); WBC Urine 5-10/HPF (0-5/HPF)
[2019-06-08 13:12] LABS: Amorphous Sediment Urine 1+; Bacteria Urine Few (2-10); Culture Indicated Urine Cult Not Indicated
[2019-06-08] MEDS: NICOTINE 21 MG PATCH TOP (13:18)
[2019-06-08 20:00] VITALS: BP 115/55; PULSE 78; RESP 16; O2SAT 98
[2019-06-08] MEDS: LORazepam 0.5 MG TABLET 1 MG PO (20:19)
--- NOTE | 2019-06-08 21:46 | PC.NURSE ---
stopped by [facility]
--- NOTE | 2019-06-08 21:47 | PC.NURSE ---
stopped by for 10 min took cloths home
[2019-06-09 00:17] VITALS: BP 107/57; PULSE 88; RESP 15; TEMP 36.4; O2SAT 97
--- NOTE | 2019-06-09 02:21 | PC.NURSE ---
Pt accepted to [facility]. Arrival time to be at 0900 in the morning.
[2019-06-09 06:07] VITALS: BP 108/63; PULSE 78; RESP 14; O2SAT 97
--- NOTE | 2019-06-09 06:09 | PC.NURSE ---
Pt has been sleeping in bed all night, easily arousable, without complaint.
== END 2019-06-09 08:05 ==
PROVIDERS: Emergency Medicine; Emergency Provider Emergency Medicine; PCP Family Medicine
DX: F43.10 Post-traumatic stress disorder, unspecified (principal); F41.0 Panic disorder [episodic paroxysmal anxiety]; F41.9 Anxiety disorder, unspecified; F32.9 Major depressive disorder, single episode, unspecified; F42.9 Obsessive-compulsive disorder, unspecified
CPT/HCPCS: 36415; 80053; 80305; 80320; 81001; 81025; 84443; 85025; 99284

== ENCOUNTER → 2019-07-01 13:27 | Outpatient (CLI) | payer OTHER, MEDICAID, SELFPAY | PROVIDERS: PCP Family Medicine; Visit Provider Physician Assistant | DX: J02.9 Acute pharyngitis, unspecified (principal) | CPT/HCPCS: 87070 ==

== ENCOUNTER → 2019-10-27 12:37 | Outpatient (CLI) | payer OTHER, MEDICAID, SELFPAY ==
[2019-10-27 14:59] LABS: Free T3, Triiodothyronine Free 4.32 pg/mL (2.77-5.27); Free T4, Direct Thyroxine 1.18 ng/dL (0.78-2.19)
[2019-10-27 15:13] LABS: Thyroid Stimulating Hormone 1.24 uIU/mL (0.47-4.68)
== END ==
PROVIDERS: PCP Family Medicine; Referring Provider Family Medicine; Visit Provider Family Medicine
DX: F41.0 Panic disorder [episodic paroxysmal anxiety] (principal)
CPT/HCPCS: 36415; 84439; 84443; 84481

== ENCOUNTER 2020-02-03 22:29 | Emergency (ER) | payer OTHER, MEDICAID, SELFPAY ==
--- NOTE | 2020-02-03 22:35 | ED.MEDCLEAR ---
HPI - Medical Clearance General Chief complaint: Medical Clearance Stated complaint: Fit for fpc Time Seen by Provider: 02/03/20 22:30 Source: patient and police Mode of arrival: Ambulatory Limitations: no limitations History of Present Illness HPI Narrative: 29F daily smoker with a history of bipolar disorder presents with [place] [employer] for evaluation and medical clearance for incarceration. She had consumed alcohol and was allegedly engaged in an argument with her significant other and neighbors notified PD. PD brought her here because she mentioned that she was told not to have alcohol with her mental health medications and they asked for medical clearance. Patient has very little complaint. She denies CP, SOB, N/V/D. Related Information Home Medications Medication Instructions Recorded Confirmed cyclobenzaprine 5 mg PO BEDTIME PRN 01/03/19 01/02/20 Previous Rx's Medication Instructions Recorded albuterol sulfate 2.5 mg INHALATION Q4-6H PRN #75 ml 02/18/19 albuterol sulfate 90 mcg/actuation 2 puff INHALATION Q4-6H PRN #8 gram 02/18/19 aerosol inhaler ibuprofen 600 mg tablet 600 mg PO Q8H PRN #60 tab 10/31/19 lamotrigine 100 mg tablet 100 mg PO DAILY #30 tab 01/02/20 divalproex 250 mg tablet,extended 500 mg PO BEDTIME #60 tab 01/06/20 release 24 hr hydrocodone 5 mg-acetaminophen 325 1 tab PO Q4-6H PRN #30 tab 01/20/20 mg tablet alprazolam 0.25 mg tablet 0.25 - 0.5 mg PO Q6H PRN #60 tab 02/02/20 Allergies Allergy/AdvReac Type Severity Reaction Status Date / Time promethazine [PROMETHAZINE] Allergy Severe panic Verified 01/02/20 14:55 attach citalopram [CITALOPRAM] Allergy Mild INCREASE Verified 01/02/20 14:55 ANXIETY/ IRRITABLE droperidol [DROPERIDOL] Allergy Mild UNKNOWN Verified 01/02/20 14:55 nifedipine [NIFEDIPINE] Allergy Mild HEADACHE, Verified 01/02/20 14:55 VOMITING red dye [RED DYE] Allergy Mild N & V, Verified 01/02/20 14:55 MIGRAINE, HIVES terbutaline [TERBUTALINE] Allergy Mild VOMITING, Verified 01/02/20 14:55 HEADACHE Review of Systems Constitutional Constitutional: Denies chills, Denies fatigue, Denies fever(s), Denies frequent falls, Denies lethargy and Denies weakness Eyes Eyes: Denies change in vision, Denies eye discharge, Denies irritation and Denies loss of vision ENT Ears, Nose, Mouth, and Throat: Denies change in voice, Denies dizziness, Denies neck pain, Denies sore throat and Denies throat swelling Cardiovascular Cardiovascular: Denies chest pain, Denies irregular heart rhythm, Denies lightheadedness, Denies palpitations, Denies dyspnea, Denies dyspnea on exertion and Denies orthopnea Respiratory Respiratory: Denies cough, Denies dyspnea, Denies dyspnea on exertion and Denies wheezing Gastrointestinal Gastrointestinal: Denies abdominal pain, Denies change in bowel habits, Denies diarrhea, Denies nausea and Denies vomiting Musculoskeletal Musculoskeletal: Denies neck pain and Denies numbness Integumentary/Breasts Skin/Breast: Denies pruritus, Denies erythema, Denies rash and Denies wounds Neurologic Neurologic: Denies behavioral changes, Denies confusion, Denies dizziness, Denies frequent falls, Denies loss of vision, Denies numbness and Denies weakness Psychiatric Psychiatric: Denies anxiety, Denies behavioral changes, Denies confusion, Denies depression, Denies homicidal ideation and Denies suicidal ideation Endocrine Endocrine: Denies fatigue, Denies flushing and Denies palpitations Hematologic/Lymphatic Hematologic/Lymphatic: Denies easy bruising Allergic/Immunologic Allergic/Immunologic: Denies urticaria, Denies throat swelling and Denies wheezing Patient History Medical History Lumbar radiculopathy (Acute) Major depressive disorder, recurrent, severe without psychotic features (Chronic) Obsessive-compulsive disorder (Chronic) Other specified depressive episodes (Chronic) Panic attacks (Acute) Pharyngitis (Acute) PTSD (post-traumatic stress disorder) (Acute) Surgical History Status post dilation and curettage Status post dilation and curettage (~2007) Status post dilation and curettage (~2011) Status post laparoscopy (02/25/16) Status post tubal ligation Family History Mother Hypothyroid Hypertension Grandmother Breast cancer Colon cancer Social History number of children: 4 household members: spouse pets and animals: No education level: other seatbelt use: always helmet use: Yes water heater temp set < 120 deg: Yes working smoke detector in home: Yes fire extinguisher in home: Yes carbon monox detector in home: No firearms in home: No Smoking Status: Current every day smoker alcohol intake: current substance use type: does not use Smoking Status: Current every day smoker alcohol intake frequency: a few times a week Substance Use Type: marijuana Exam Narrative Exam Narrative: GENERAL: [29] year old patient appears stated age. Well-nourished, well-developed patient, in mild distress. Anxious, tearful HEAD: Atraumatic. Normocephalic. EYES: Pupils equal round and reactive. Extraocular motions intact. No scleral icterus. No injection or drainage. ENT: Nose without bleeding, purulent drainage. Throat without erythema, tonsillar hypertrophy or exudate. Airway patent. NECK: Trachea midline. Non tender CARDIOVASCULAR: tachycardic, but regular rhythm without murmurs, gallops, or rubs. RESPIRATORY: Clear to auscultation. Breath sounds equal bilaterally. No wheezes, rales, or rhonchi. GASTROINTESTINAL: Abdomen soft, non-tender, nondistended. EXTREMITIES: No edema or joint tenderness. BACK: Nontender without deformity or crepitance. No flank tenderness. NEURO: AOx3. SKIN: No rash or erythema of visible areas Initial Vital Signs Initial Vital Signs: Vital Signs Temperature 97.7 F 02/03/20 22:42 Pulse Rate 130 H 02/03/20 22:42 Respiratory Rate 28 H 02/03/20 22:42 Blood Pressure 107/67 02/03/20 22:42 Pulse Oximetry 99 02/03/20 22:42 MDM - Medical Clearance Lab Data Result diagrams: 02/03/20 22:45 02/03/20 22:45 Labs: Lab Results 02/03/20 02/03/20 02/03/20 Range/Units 22:45 22:45 22:45 WBC 8.6 (4.5-11.0) X10^3/uL RBC 4.77 (4.0-5.2) X10^6/uL Hgb 15.0 (12.0-16.0) g/dL Hct 43.4 (36-46) % MCV 91.0 (80-100) fL MCH 31.5 (26-34) PG MCHC 34.6 (30-36) % RDW 12.6 (11.6-14.8) % Plt Count 236 (150-400) X10^3/uL Neut % (Auto) 56.0 (50-75) % Lymph % (Auto) 29.9 (25-40) % [place] % (Auto) 8.8 (3-14) % Eos % (Auto) 4.6 H (2-4) % Baso % (Auto) 0.7 (0-2) % Neut # (Auto) 4800 (3401-0286) /uL Lymph # (Auto) 2600 (4749-8731) /uL [place] # (Auto) 800 (0-900) /uL Eos # (Auto) 400 (0-450) /uL Baso # (Auto) 100 (0-100) /uL D-Dimer < 200 (<230) ng/mL Sodium (137-145) mmol/L Potassium (3.4-5.1) mmol/L Chloride (98-107) mmol/L Carbon Dioxide (22-32) mmol/L BUN (7-17) mg/dL Creatinine (0.52-1.04) mg/dL Estimated GFR (>60) mL/min BUN/Creatinine Ratio (6-22) Glucose (70-100) mg/dL Calcium (8.4-10.2) mg/dL Total Bilirubin (0.2-1.3) mg/dL AST (14-36) IU/L ALT (<35) IU/L Alkaline Phosphatase (38-126) U/L Total Protein (6.3-8.2) g/dL Albumin (3.5-5.0) g/dL Globulin (1.7-4.1) g/dL Albumin/Globulin Ratio (1.0-2.8) Ethyl Alcohol 184 H ( - 10) mg/dL 10/20/20 Range/Units 22:45 WBC (4.5-11.0) X10^3/uL RBC (4.0-5.2) X10^6/uL Hgb (12.0-16.0) g/dL Hct (36-46) % MCV (80-100) fL MCH (26-34) PG MCHC (30-36) % RDW (11.6-14.8) % Plt Count (150-400) X10^3/uL Neut % (Auto) (50-75) % Lymph % (Auto) (25-40) % [place] % (Auto) (3-14) % Eos % (Auto) (2-4) % Baso % (Auto) (0-2) % Neut # (Auto) (9513-4263) /uL Lymph # (Auto) (0924-6890) /uL [place] # (Auto) (0-900) /uL Eos # (Auto) (0-450) /uL Baso # (Auto) (0-100) /uL D-Dimer (<230) ng/mL Sodium 144 (137-145) mmol/L Potassium 3.9 (3.4-5.1) mmol/L Chloride 106 (98-107) mmol/L Carbon Dioxide 28 (22-32) mmol/L BUN 14 (7-17) mg/dL Creatinine 0.79 (0.52-1.04) mg/dL Estimated GFR > 60.0 (>60) mL/min BUN/Creatinine Ratio 17.7 (6-22) Glucose 93 (70-100) mg/dL Calcium 9.1 (8.4-10.2) mg/dL Total Bilirubin 0.3 (0.2-1.3) mg/dL AST 22 (14-36) IU/L ALT 12 (<35) IU/L Alkaline Phosphatase 52 (38-126) U/L Total Protein 7.0 (6.3-8.2) g/dL Albumin 4.4 (3.5-5.0) g/dL Globulin 2.6 (1.7-4.1) g/dL Albumin/Globulin Ratio 1.7 (1.0-2.8) Ethyl Alcohol ( - 10) mg/dL Point of Care Testing Test Results Negative Urine Dip Bedside Urine Glucose Negative Bedside Urine Bilirubin - Negative Bedside Urine Ketone - Negative Urine Specific [place] 1.015 Bedside Urine Occult Blood - Negative Bedside Urine pH 6 Bedside Urine Protein - Negative Bedside Urine Urobilinogen - Negative Bedside Urine Nitrite - Negative Bedside Urine Leukocytes - Negative Esterase MDM Narrative Medical decision making narrative: Initial tachycardia quickly resovles, even before IV fluids are likely to play a role. She is AOx3 and speaking clearly without slurring and walking a straight line. Her exam and labs are very reassuring. Her EKG is without significant abnormalities. Discharge Plan Departure Patient Disposition: Home Clinical Impression: Medical clearance for incarceration Alcohol intoxication Qualifiers: Complication of substance-induced condition: uncomplicated Qualified Code(s): F10.920 - Alcohol use, unspecified with intoxication, uncomplicated Discharge Date/Time: 02/03/20 23:30 Activity Restrictions/Additional Instructions: YOU HAVE BEEN MEDICALLY CLEARED FOR INCARCERATION *You have been diagnosed with [alcohol abuse, intoxication, medical clearance for incarceration] *What to do: *Take medications as directed: Do not mix alcohol with your prescription medications. *Follow up with your primary care provider in 2-3 days, call for an appointment. Let them know you were seen in the Emergency Department and that we ask that you be seen in follow up *Return to ER if you should have any new, worsening or concerning symptoms Prescriptions: No Action albuterol sulfate 90 mcg/actuation HFA aerosol inhaler 2 puff INHALATION Q4-6H PRN (Reason: shortness of breath or wheezing) Qty: 8 RF: 0 albuterol sulfate 2.5 mg /3 mL (0.083 %) solution for nebulization 2.5 mg INHALATION Q4-6H PRN (Reason: shortness of breath or wheezing) Qty: 75 RF: 0 lamotrigine 100 mg tablet 100 mg PO DAILY Qty: 30 RF: 1 divalproex [Depakote ER] 250 mg tablet extended release 24 hr 500 mg PO BEDTIME Qty: 60 RF: 0 ibuprofen 600 mg tablet 600 mg PO Q8H PRN (Reason: pain) Qty: 60 RF: 1 hydrocodone-acetaminophen [[place]] 5-325 mg tablet 1 tab PO Q4-6H PRN (Reason: pain) Qty: 30 RF: 0 alprazolam 0.25 mg tablet 0.25 - 0.5 mg PO Q6H PRN (Reason: anxiety) Qty: 60 RF: 1 cyclobenzaprine 5 mg tablet 5 mg PO BEDTIME PRN (Reason: pain) RF: 0 Referrals: Jim Hudson MD [Primary Care Provider] -
[2020-02-03 22:42] VITALS: BP 107/67; PULSE 130; RESP 28; TEMP 36.5; O2SAT 99; BMI 27.4
[2020-02-03] MEDS: SODIUM CHLORIDE 0.9% 1,000 ML 1000 ML IV (22:50)
[2020-02-03 22:53] VITALS: PULSE 90; O2SAT 98
[2020-02-03 22:57] LABS: Add Manual Diff / Slide Review NO; Basophils Absolute Auto 100 /uL (0-100); Basophils Percent Auto 0.7 % (0-2); Eosinophils Absolute Auto 400 /uL (0-450); Eosinophils Percent Auto 4.6 % (2-4); Hematocrit 43.4 % (36-46); Lymphocytes Absolute Auto 2600 /uL (1100-4500); Lymphocytes Percent Auto 29.9 % (25-40); Mean Corpuscular HGB Conc 34.6 % (30-36); Mean Corpuscular Hemoglobin 31.5 PG (26-34); Monocytes Absolute Auto 800 /uL (0-900); Monocytes Percent Auto 8.8 % (3-14); Neutrophils Absolute Auto 4800 /uL (1500-7000); Platelet Count 236 X10^3/uL (150-400); Red Blood Cell Count 4.77 X10^6/uL (4.0-5.2); Red Cell Distribution Width 12.6 % (11.6-14.8); White Blood Cell Count 8.6 X10^3/uL (4.5-11.0)
[2020-02-03 23:00] VITALS: PULSE 99; O2SAT 98
[2020-02-03 23:03] VITALS: BP 108/69; PULSE 89; O2SAT 98
[2020-02-03 23:05] LABS: Ethanol (ETOH) 184 mg/dL
[2020-02-03 23:06] LABS: Alanine Aminotransferase 12 IU/L (<35); Albumin 4.4 g/dL (3.5-5.0); Albumin Globulin Ratio 1.7 (1.0-2.8); Alkaline Phosphatase 52 U/L (38-126); Aspartate Aminotransferase 22 IU/L (14-36); BUN Creatinine Ratio 17.7 (6-22); Bilirubin Total 0.3 mg/dL (0.2-1.3); Blood Urea Nitrogen 14 mg/dL (7-17); Calcium 9.1 mg/dL (8.4-10.2); Carbon Dioxide 28 mmol/L (22-32); Chloride 106 mmol/L (98-107); Estimated Glomerular Filt Rate > 60.0 mL/min (>60); Globulin 2.6 g/dL (1.7-4.1); Glucose 93 mg/dL (70-100); HEMOLYSIS < 15 (0-50); Potassium 3.9 mmol/L (3.4-5.1); Sodium 144 mmol/L (137-145)
[2020-02-03 23:07] LABS: D Dimer < 200 ng/mL (<230)
[2020-02-05 05:45] LABS: Valproic Acid (Depakene) Total 60 ug/mL (50-100)
== END 2020-02-03 23:30 | disposition home or self-care (01) ==
PROVIDERS: Emergency Provider Emergency Medicine; PCP Family Medicine
DX: Z02.89 Encounter for other administrative examinations (principal); F10.129 Alcohol abuse with intoxication, unspecified; Y90.6 Blood alcohol level of 120-199 mg/100 ml; R07.9 Chest pain, unspecified
CPT/HCPCS: 36415; 80053; 80164; 80320; 81003; 81025; 85025; 85379; 93005; 93010; 96360; 99284

== ENCOUNTER → 2020-03-26 15:09 | Outpatient (CLI) | payer OTHER, MEDICAID, SELFPAY ==
[2020-03-26 15:24] LABS: Add Manual Diff / Slide Review NO; Basophils Absolute Auto 100 /uL (0-100); Basophils Percent Auto 0.8 % (0-2); Eosinophils Absolute Auto 300 /uL (0-450); Eosinophils Percent Auto 3.8 % (2-4); Hematocrit 42.9 % (36-46); Hemoglobin 14.7 g/dL (12.0-16.0); Lymphocytes Absolute Auto 2000 /uL (1100-4500); Mean Corpuscular HGB Conc 34.3 % (30-36); Mean Corpuscular Hemoglobin 31.3 PG (26-34); Mean Corpuscular Volume 91.2 fL (80-100); Monocytes Absolute Auto 700 /uL (0-900); Monocytes Percent Auto 8.3 % (3-14); Neutrophils Absolute Auto 5300 /uL (1500-7000); Neutrophils Percent Auto 63.1 % (50-75); Platelet Count 235 X10^3/uL (150-400); Red Blood Cell Count 4.71 X10^6/uL (4.0-5.2); Red Cell Distribution Width 12.6 % (11.6-14.8); White Blood Cell Count 8.4 X10^3/uL (4.5-11.0)
[2020-03-26 15:44] LABS: Erythrocyte Sedimentation Rate 1 MM/HR (0-20)
[2020-03-26 15:47] LABS: C-Reactive Protein Quant < 0.5 mg/dL (<1.0); Rheumatoid Factor < 8.6 IU/mL (<12.0)
[2020-03-27 19:13] LABS: Tissue Transglutaminase IgA <2 U/mL (0-3); t-Transglutaminase IgA <2 U/mL (0-3)
[2020-03-28 14:36] LABS: ANA Screen, IFA Negative (.)
== END ==
PROVIDERS: PCP Family Medicine; Referring Provider Family Medicine; Visit Provider Family Medicine
DX: R14.0 Abdominal distension (gaseous) (principal); G89.29 Other chronic pain
CPT/HCPCS: 36415; 83516; 85025; 85651; 86003; 86038; 86140; 86430

== ENCOUNTER → 2020-04-01 09:31 | Outpatient (CLI) | payer OTHER, MEDICAID, SELFPAY | PROVIDERS: PCP Family Medicine; Visit Provider Registered Nurse | DX: N89.8 Other specified noninflammatory disorders of vagina (principal) | CPT/HCPCS: 87210 ==

== ENCOUNTER 2020-09-24 11:14 | Emergency (ER) | payer OTHER, MEDICAID, SELFPAY ==
[2020-09-24] VITALS (9 sets, daily range): BP systolic 101–110; BP diastolic 60–75; PULSE 58–89; RESP 14–28; TEMP 36.4; O2SAT 95–100; BMI 30.2
--- NOTE | 2020-09-24 11:34 | DI.RAD.S_ITS ---
PROCEDURE: XR CHEST 1V INDICATIONS: Chest pain TECHNIQUE: One view of the chest was acquired. COMPARISON: None. FINDINGS: Surgical changes and devices: None. Lungs and pleura: Lungs are clear. No pleural effusions or pneumothorax. Mediastinum: Mediastinal contours appear normal. Heart size is normal. Bones and chest wall: No suspicious bony lesions. Overlying soft tissues appear unremarkable. IMPRESSION: No acute cardiopulmonary process demonstrated radiographically. Dictated by: Johnson Villa M.D. on 09/24/2020 at 12:11 Approved by: Johnson Villa M.D. on 09/24/2020 at 12:11
--- NOTE | 2020-09-24 11:35 | DI.CT.S_ITS ---
PROCEDURE: CT HEAD/BRAIN WO CON INDICATIONS: fall, hit head TECHNIQUE: Noncontrast 4.5 mm thick angled axial sections acquired from the foramen magnum to the vertex, with coronal and sagittal reformats. For radiation dose reduction, the following was used: automated exposure control, adjustment of mA and/or kV according to patient size. COMPARISON: None. FINDINGS: Image quality: Excellent. CSF spaces: Basal cisterns are patent. No extra-axial fluid collections. Ventricles are normal in size and shape. Brain: No midline shift. No intracranial masses or hemorrhage. [place]-white matter interface is normal. Skull and face: Calvarium and visualized facial bones are intact, without suspicious lesions. Sinuses: Visualized sinuses and mastoids are clear. IMPRESSION: No CT evidence of acute intracranial trauma. Dictated by: Ellie Amaro M.D. on 09/24/2020 at 11:59 Approved by: Ellie Amaro M.D. on 09/24/2020 at 12:05
--- NOTE | 2020-09-24 11:35 | DI.CT.S_ITS ---
PROCEDURE: CT CERVICAL SPINE WO CON INDICATIONS: fall, hit head TECHNIQUE: Noncontrast 3 mm thick sections acquired from the skull base to the T4 level. Sagittal and coronal reformats were then constructed. For radiation dose reduction, the following was used: automated exposure control, adjustment of mA and/or kV according to patient size. COMPARISON: None. FINDINGS: Image quality: Excellent. Bones: No fractures or dislocations. Reversal of the normal cervical lordosis. Visualized superior ribs are intact. Soft tissues: Prevertebral soft tissues are normal in thickness. No paravertebral hematomas. No apical pneumothoraces. IMPRESSION: 1. No CT evidence of acute cervical spine trauma. 2. Cervical kyphosis is likely due to muscle spasm and/or positioning. Dictated by: Ellie Amaro M.D. on 09/24/2020 at 12:05 Approved by: Ellie Amaro M.D. on 09/24/2020 at 12:08
[2020-09-24 11:54] LABS: Add Manual Diff / Slide Review NO; Basophils Absolute Auto 100 /uL (0-100); Basophils Percent Auto 0.9 % (0-2); Eosinophils Absolute Auto 0 /uL (0-450); Eosinophils Percent Auto 0.1 % (2-4); Hematocrit 43.4 % (36-46); Lymphocytes Absolute Auto 1600 /uL (1100-4500); Mean Corpuscular HGB Conc 34.5 % (30-36); Mean Corpuscular Hemoglobin 30.9 PG (26-34); Mean Corpuscular Volume 89.4 fL (80-100); Monocytes Absolute Auto 400 /uL (0-900); Neutrophils Absolute Auto 3700 /uL (1500-7000); Platelet Count 248 X10^3/uL (150-400); Red Blood Cell Count 4.85 X10^6/uL (4.0-5.2); Red Cell Distribution Width 12.7 % (11.6-14.8); White Blood Cell Count 5.8 X10^3/uL (4.5-11.0)
[2020-09-24 12:03] LABS: Alanine Aminotransferase 17 IU/L (<35); Albumin 4.1 g/dL (3.5-5.0); Albumin Globulin Ratio 1.5 (1.0-2.8); Alkaline Phosphatase 60 U/L (38-126); Aspartate Aminotransferase 25 IU/L (14-36); BUN Creatinine Ratio 25.8 (6-22); Bilirubin Total 0.6 mg/dL (0.2-1.3); Blood Urea Nitrogen 17 mg/dL (7-17); Calcium 9.1 mg/dL (8.4-10.2); Carbon Dioxide 28 mmol/L (22-32); Chloride 104 mmol/L (98-107); Creatine Kinase 33 U/L (30-135); Estimated Glomerular Filt Rate > 60.0 mL/min (>60); Globulin 2.8 g/dL (1.7-4.1); Glucose 91 mg/dL (70-100); HEMOLYSIS < 15 (0-50); Lipase 61 U/L (23-300); Potassium 4.4 mmol/L (3.4-5.1); Sodium 138 mmol/L (137-145); Total Protein 6.9 g/dL (6.3-8.2)
[2020-09-24 12:04] LABS: Magnesium 1.9 mg/dL (1.6-2.3)
[2020-09-24 12:15] LABS: Troponin I < 0.012 ng/mL (0.01-0.034)
[2020-09-24] MEDS: SODIUM CHLORIDE 0.9% 1,000 ML 1000 ML IV (12:21)
[2020-09-24] MEDS: ONDANSETRON 4 MG/2 ML INJ IV (12:21)
--- NOTE | 2020-09-24 12:46 | PC.NURSE ---
Generalized weakness and difficulty walking/several episodes of near syncope over the last couple of days. Pt admits to poor hydration and nutrition. Bruise noted on right frontal forehead.
[2020-09-24] MEDS: MECLIZINE HCL 12.5 MG TABLET 25 MG PO (13:02)
--- NOTE | 2020-09-24 13:02 | ED.HEATRA ---
HPI - Head Injury General Chief complaint: Head Injury Stated complaint: multiple syncope/poss concussion/pupils unequal Time Seen by Provider: 09/24/20 12:22 Source: patient Mode of arrival: Wheelchair Limitations: no limitations History of Present Illness HPI Narrative: Patient is a 29-year-old female who presents with dizziness lightheadedness after head injury. She states that 2 days ago she was intoxicated with alcohol when she decided to hit her head on the concrete. She does not remember the incident her friends said she was already sitting on the ground and she wanted to hit her head against the concrete. There was no loss of consciousness. Since then however she has been dizzy off and on with mild nausea. Today she decided to come to the ER for evaluation. She says that she typically does not drink alcohol. She does have history of depression and anxiety. She denies suicidal or homicidal ideations. MD Complaint: head injury Onset (ago): day(s) (2) Related Data Home Medications Medication Instructions Recorded Confirmed cyclobenzaprine 5 mg PO BEDTIME PRN 01/03/19 09/01/20 Previous Rx's Medication Instructions Recorded albuterol sulfate 2.5 mg INHALATION Q4-6H PRN #75 ml 02/18/19 albuterol sulfate 90 mcg/actuation 2 puff INHALATION Q4-6H PRN #8 gram 02/18/19 aerosol inhaler duloxetine 30 mg capsule,delayed See Rx Instructions .ROUTE 07/28/20 release .COMPLEX #90 cap ibuprofen 600 mg tablet 600 mg PO Q8H PRN #60 tab 08/04/20 trazodone 50 mg tablet 50 mg PO BEDTIME PRN #60 tab 09/01/20 lamotrigine 100 mg tablet 100 mg PO DAILY #30 tab 09/09/20 alprazolam 0.25 mg tablet See Rx Instructions .ROUTE 09/16/20 .COMPLEX #60 tab hydrocodone 5 mg-acetaminophen 325 See Rx Instructions .ROUTE 09/16/20 mg tablet .COMPLEX #30 tab meclizine 25 mg PO TID PRN #10 tab 09/24/20 ondansetron 4 mg PO Q8H PRN #10 tab 09/24/20 Allergies Allergy/AdvReac Type Severity Reaction Status Date / Time promethazine [PROMETHAZINE] Allergy Severe panic Verified 09/24/20 11:59 attach citalopram [CITALOPRAM] Allergy Mild INCREASE Verified 09/24/20 11:59 ANXIETY/ IRRITABLE droperidol [DROPERIDOL] Allergy Mild UNKNOWN Verified 09/24/20 11:59 nifedipine [NIFEDIPINE] Allergy Mild HEADACHE, Verified 09/24/20 11:59 VOMITING red dye [RED DYE] Allergy Mild N & V, Verified 09/24/20 11:59 MIGRAINE, HIVES terbutaline [TERBUTALINE] Allergy Mild VOMITING, Verified 09/24/20 11:59 HEADACHE Review of Systems Review of Systems Narrative: GENERAL: Denies chills, fatigue, malaise, fever, sweats, travel HEENT: Denies sinus pain, ear pain, sore throat, difficulty swallowing, neck pain RESPIRATORY: Denies dyspnea, cough, wheezing, hemoptysis, sputum. CARDIOVASCULAR: Denies chest pain, palpitations, orthopnea, edema GASTROINTESTINAL: Denies nausea, vomiting, abdominal pain, diarrhea, constipation, melena. : Denies dysuria, frequency, incontinence, hematuria, urinary retention, flank pain. MUSCULOSKELETAL: Denies weakness, joint pain, or bony pain SKIN: No rash, no erythema, no pruritus NEUROLOGIC: See HPI PSYCHIATRIC: No concerning psychosocial issues. 12 point review of systems is negative except for those stated above and HPI Patient History Medical History Chronic pain Insomnia Lumbar radiculopathy Major depressive disorder, recurrent, severe without psychotic features Obsessive-compulsive disorder Other specified depressive episodes Otitis media with effusion Panic attacks Pharyngitis PTSD (post-traumatic stress disorder) TMJ (temporomandibular joint disorder) Surgical History Status post dilation and curettage Status post dilation and curettage (~2007) Status post dilation and curettage (~2011) Status post laparoscopy (02/25/16) Status post tubal ligation Family History Mother Hypothyroid Hypertension Grandmother Breast cancer Colon cancer Social History number of children: 4 household members: spouse pets and animals: No education level: other seatbelt use: always helmet use: Yes water heater temp set < 120 deg: Yes working smoke detector in home: Yes fire extinguisher in home: Yes carbon monox detector in home: No firearms in home: No Smoking Status: Former smoker (quit in February) alcohol intake: current substance use type: does not use Smoking Status: Former smoker (quit in February) tobacco type: cigarettes alcohol intake frequency: a few times a week Alcohol type: hard liquor Substance Use Type: does not use Exam Initial Vital Signs Initial Vital Signs: Vital Signs Temperature 97.5 F L 09/24/20 11:20 Pulse Rate 89 09/24/20 11:20 Respiratory Rate 16 09/24/20 11:20 Blood Pressure 106/65 09/24/20 11:20 Pulse Oximetry 100 09/24/20 11:20 GENERAL: Well-appearing, well-nourished and in no acute distress. HEENT: Head atraumatic no crepitation depression mild forehead contusion but very slight,EOMI, pupils reactive, face symmetric, moist mucous membranes NECK: No vertebral tenderness no step-off full flexion extension and rotation CARDIOVASCULAR: Regular rate and rhythm without murmurs, rubs or gallops. RESPIRATORY: Breath sounds equal bilaterally, no wheezes rales or rhonchi. ABDOMEN: Soft, nontender. Normoactive bowel sounds all 4 quadrants. No guarding or rebound. EXTREMITIES: Normal range of motion, no clubbing or edema. Neurovascularly intact NEUROLOGICAL: Alert and oriented x4.Normal gait and speech. Cranial nerves II through XII grossly intact. Good [id number], good [id number], strength equal bilaterally, no dysarthria or aphasia, sensation in tact to soft touch bilaterally, no visual changes, no facial droop SKIN: Warm, dry, no laceration, no petechiae, no rashes or lesions. Scores NIH Stroke Scale Level of Conciousness: Alert, keenly responsive Ask month/age: Answers both questions correctly. Open/close eyes, close hand: Performs both tasks correctly Best gaze horizontal: Normal Visual campbell: No visual loss Facial palsy: Normal symetrical movement Left arm drift: No drift for full 10 sec Right arm drift: No drift for full 10 sec Left leg drift: No drift for full 5 sec Right leg drift: No drift for full 5 sec Limb ataxia: Absent Sensory on face/arms/legs: Normal, no sensory loss Best language: No aphasia, normal Dysarthria: Normal Extinction or inattention: No abnormality Total NIH Stroke scale score: 0 Course Orders Ordered: ED Orders 09/24/20 11:34 XR chest 1V Stat EKG-12 Lead Stat 09/24/20 11:35 CT cervical spine wo con Stat CT head/brain wo con Stat 09/24/20 11:45 Complete Blood Count AUTO DIFF Stat Comprehensive Metabolic Panel Stat Lipase Stat Magnesium Stat Troponin & CK Cardiac Panel Stat Discontinued Medications Sodium Chloride (Normal Saline 0.9%) 1,000 mls @ 1,000 mls/hr IV BOLUS ONE Stop: 09/24/20 12:34 Last Infusion: 09/24/20 13:27 Dose: 0 mls/hr Documented by: Admin: 09/24/20 12:21 Dose: 1,000 mls/hr Documented by: AVANI Meclizine HCl (Meclizine Hcl 12.5 Mg Tablet) 25 mg PO NOW ONE Stop: 09/24/20 12:54 Last Admin: 09/24/20 13:02 Dose: 25 mg Documented by: AVANI Ondansetron HCl (Ondansetron 4 Mg/2 Ml Inj) 4 mg IV NOW ONE Stop: 09/24/20 11:36 Last Admin: 09/24/20 12:21 Dose: 4 mg Documented by: AVANI Vital Signs Vital signs: Vital Signs - 8 hr 09/24/20 11:20 09/24/20 12:01 09/24/20 12:22 Temperature 97.5 F L Pulse Rate 89 72 66 Pulse Rate [Orthostatic Lying] Pulse Rate [Orthostatic Sitting] Pulse Rate [Orthostatic Standing] Respiratory Rate 16 16 Blood Pressure 106/65 101/60 103/65 Blood Pressure [Orthostatic Lying] Blood Pressure [Orthostatic Sitting] Blood Pressure [Orthostatic Standing] Pulse Oximetry 100 95 99 09/24/20 12:23 09/24/20 12:27 09/24/20 12:30 Temperature Pulse Rate 67 58 L Pulse Rate [Orthostatic Lying] 64 Pulse Rate [Orthostatic Sitting] 75 Pulse Rate [Orthostatic Standing] 63 Respiratory Rate 28 H Blood Pressure 109/68 Blood Pressure [Orthostatic Lying] 103/65 Blood Pressure [Orthostatic Sitting] 107/66 Blood Pressure [Orthostatic Standing] 110/69 Pulse Oximetry 100 99 09/24/20 12:31 09/24/20 13:00 09/24/20 13:30 Temperature Pulse Rate 60 Pulse Rate [Orthostatic Lying] Pulse Rate [Orthostatic Sitting] Pulse Rate [Orthostatic Standing] Respiratory Rate 14 19 Blood Pressure 105/69 107/75 107/65 Blood Pressure [Orthostatic Lying] Blood Pressure [Orthostatic Sitting] Blood Pressure [Orthostatic Standing] Pulse Oximetry 99 99 98 MDM - Head Injury Lab Data Attestation: I reviewed the patient's lab results. Result diagrams: 09/24/20 11:45 09/24/20 11:45 Labs: Lab Results 09/24/20 09/24/20 09/24/20 Range/Units 11:45 11:45 11:45 WBC 5.8 (4.5-11.0) X10^3/uL RBC 4.85 (4.0-5.2) X10^6/uL Hgb 15.0 (12.0-16.0) g/dL Hct 43.4 (36-46) % MCV 89.4 (80-100) fL MCH 30.9 (26-34) PG MCHC 34.5 (30-36) % RDW 12.7 (11.6-14.8) % Plt Count 248 (150-400) X10^3/uL Neut % (Auto) 64.0 (50-75) % Lymph % (Auto) 28.0 (25-40) % Pine % (Auto) 7.0 (3-14) % Eos % (Auto) 0.1 L (2-4) % Baso % (Auto) 0.9 (0-2) % Neut # (Auto) 3700 (4521-9962) /uL Lymph # (Auto) 1600 (6042-5873) /uL Pine # (Auto) 400 (0-900) /uL Eos # (Auto) 0 (0-450) /uL Baso # (Auto) 100 (0-100) /uL Sodium 138 (137-145) mmol/L Potassium 4.4 (3.4-5.1) mmol/L Chloride 104 (98-107) mmol/L Carbon Dioxide 28 (22-32) mmol/L BUN 17 (7-17) mg/dL Creatinine 0.66 (0.52-1.04) mg/dL Estimated GFR > 60.0 (>60) mL/min BUN/Creatinine Ratio 25.8 H (6-22) Glucose 91 (70-100) mg/dL Calcium 9.1 (8.4-10.2) mg/dL Magnesium 1.9 (1.6-2.3) mg/dL Total Bilirubin 0.6 (0.2-1.3) mg/dL AST 25 (14-36) IU/L ALT 17 (<35) IU/L Alkaline Phosphatase 60 (38-126) U/L Total Creatine Kinase 33 (30-135) U/L CK-MB (CK-2) TNP CK-MB (CK-2) Rel Index TNP Troponin I < 0.012 (0.01-0.034) ng/mL Total Protein 6.9 (6.3-8.2) g/dL Albumin 4.1 (3.5-5.0) g/dL Globulin 2.8 (1.7-4.1) g/dL Albumin/Globulin Ratio 1.5 (1.0-2.8) Lipase 61 (23-300) U/L Imaging Data CT scan - head: Radiologist's Impression: [address] Scan ReportSigned Patient: Viki Rubio [facility]#: [id number]: 1990Acct:[id number]/Sex: 29 / FDate of Service: 09/24/20Loc: EDAccession Number: [id number] Procedure: CT head/brain wo con Ordering Provider: Ella Cochran D.O. PROCEDURE: CT HEAD/BRAIN WO CON INDICATIONS: fall, hit head TECHNIQUE: Noncontrast 4.5 mm thick angled axial sections acquired from the foramen magnum to the vertex, with coronal and sagittal reformats. For radiation dose reduction, the following was used: automated exposure control, adjustment of mA and/or kV according to patient size. COMPARISON: None. FINDINGS: Image quality: Excellent. CSF spaces: Basal cisterns are patent. No extra-axial fluid collections. Ventricles are normal in size and shape. Brain: No midline shift. No intracranial masses or hemorrhage. Medina-white matter interface is normal. Skull and face: Calvarium and visualized facial bones are intact, without suspicious lesions. Sinuses: Visualized sinuses and mastoids are clear. IMPRESSION: No CT evidence of acute intracranial trauma. Dictated by: Ellie Amaro M.D. on 09/24/2020 at 11:59 ECG Data Attestation: I personally reviewed and interpreted this ECG as follows: Prior ECG tracings: not available for review Interpretation: Sinus rhythm rate 77 p.r. interval 128 QRS [address] changes or T-wave inversions similar to previous EKG MDM Narrative Medical decision making narrative: Patient hit her head on cement on purpose 2 days ago while intoxicated. Now having dizziness and headache. Possible concussion syndrome. She denies any suicidal or homicidal ideations. Overall feeling better after fluids and medications in the emergency department CT and blood work are reassuring. No focal deficits. Discharge Plan Departure Patient Disposition: Home Clinical Impression: Closed head injury Qualifiers: Encounter type: initial encounter Qualified Code(s): S09.90XA - Unspecified injury of head, initial encounter Instructions: Concussion, DI for Vertigo Activity Restrictions/Additional Instructions: *You have been diagnosed with closed head injury vertigo *What to do: Dizziness is likely from closed head injury. I recommend increasing fluid as tolerated. Do not hit her head on the concrete or have any other head injury, no high risk activity *Continue to take medications as directed--> SENT TO [facility] Meclizine 25 mg every 8 hours if needed for dizziness Zofran 4 mg every 8 hours needed for nausea or vomiting *Follow up with your primary care provider in 2-3 days *Return to ER if you should have increasing dizziness, worsening headache, persistent vomiting or any new, worsening or concerning symptoms Prescriptions: New meclizine 25 mg tablet 25 mg PO TID PRN (Reason: dizziness) Qty: 10 RF: 0 ondansetron 4 mg tablet,disintegrating 4 mg PO Q8H PRN (Reason: nausea and vomiting) Qty: 10 RF: 0 No Action albuterol sulfate 90 mcg/actuation HFA aerosol inhaler 2 puff INHALATION Q4-6H PRN (Reason: shortness of breath or wheezing) Qty: 8 RF: 0 albuterol sulfate 2.5 mg /3 mL (0.083 %) solution for nebulization 2.5 mg INHALATION Q4-6H PRN (Reason: shortness of breath or wheezing) Qty: 75 RF: 0 duloxetine 30 mg capsule,delayed release(DR/EC) See Rx Instructions .ROUTE .COMPLEX Qty: 90 RF: 0 ibuprofen 600 mg tablet 600 mg PO Q8H PRN (Reason: pain) Qty: 60 RF: 1 lamotrigine 100 mg tablet 100 mg PO DAILY Qty: 30 RF: 1 alprazolam 0.25 mg tablet See Rx Instructions .ROUTE .COMPLEX Qty: 60 RF: 0 hydrocodone-acetaminophen 5-325 mg tablet See Rx Instructions .ROUTE .COMPLEX Qty: 30 RF: 0 trazodone 50 mg tablet 50 mg PO BEDTIME PRN (Reason: sleep) Qty: 60 RF: 0 cyclobenzaprine 5 mg tablet 5 mg PO BEDTIME PRN (Reason: pain) RF: 0 Referrals: Gamaliel Doherty MD [Primary Care Provider] -
--- NOTE | 2020-09-24 13:53 | PC.NURSE ---
Ambulated pt around hallway, pt denied any dizziness or feelings of syncope.
== END 2020-09-24 14:02 | disposition home or self-care (01) ==
PROVIDERS: Emergency Provider Emergency Medicine; PCP Family Medicine
DX: S09.90XA Unspecified injury of head, initial encounter (principal); R42 Dizziness and giddiness; R11.0 Nausea; W22.8XXA Striking against or struck by other objects, initial encounter
CPT/HCPCS: 36415; 70450; 71045; 72125; 80053; 82550; 83690; 83735; 84484; 85025; 93005; 96361; 96374; 99284; 99285; J2405

== ENCOUNTER → 2020-10-04 09:30 | Outpatient (CLI) | payer OTHER, MEDICAID, SELFPAY ==
--- NOTE | 2020-10-04 09:32 | DI.RAD.S_ITS ---
PROCEDURE: XR LUMBAR SPINE 2-3V INDICATIONS: Lumbar radiculopathy TECHNIQUE: To views of the lumbar spine were acquired[facility], 05/[facility], 17:10. FINDINGS: Bones: 5 [id number] vertebrae are present. There is normal bony alignment. No vertebral body compression fractures. No suspicious bony lesions. Soft tissues: Overlying bowel gas pattern is normal. No suspicious soft tissue calcifications. IMPRESSION: Normal lumbosacral spine plain film imaging. Dictated by: Farooq Gayle M.D. on 10/04/2020 at 10:04 Approved by: Farooq Gayle M.D. on 10/04/2020 at 10:05
[2020-10-04 10:19] LABS: Add Manual Diff / Slide Review NO; Basophils Absolute Auto 0 /uL (0-100); Basophils Percent Auto 0.9 % (0-2); Eosinophils Absolute Auto 0 /uL (0-450); Hematocrit 39.2 % (36-46); Hemoglobin 13.6 g/dL (12.0-16.0); Lymphocytes Absolute Auto 1500 /uL (1100-4500); Lymphocytes Percent Auto 26.4 % (25-40); Mean Corpuscular HGB Conc 34.7 % (30-36); Mean Corpuscular Hemoglobin 30.9 PG (26-34); Mean Corpuscular Volume 89.2 fL (80-100); Monocytes Absolute Auto 500 /uL (0-900); Monocytes Percent Auto 8.5 % (3-14); Neutrophils Absolute Auto 3600 /uL (1500-7000); Neutrophils Percent Auto 64.2 % (50-75); Platelet Count 220 X10^3/uL (150-400); Red Cell Distribution Width 12.7 % (11.6-14.8); White Blood Cell Count 5.7 X10^3/uL (4.5-11.0)
[2020-10-04 10:38] LABS: Alanine Aminotransferase 22 IU/L (<35); Albumin 3.6 g/dL (3.5-5.0); Albumin Globulin Ratio 1.5 (1.0-2.8); Alkaline Phosphatase 46 U/L (38-126); Aspartate Aminotransferase 25 IU/L (14-36); Bilirubin Total 0.4 mg/dL (0.2-1.3); Blood Urea Nitrogen 14 mg/dL (7-17); Carbon Dioxide 26 mmol/L (22-32); Chloride 106 mmol/L (98-107); Estimated Glomerular Filt Rate > 60.0 mL/min (>60); Globulin 2.4 g/dL (1.7-4.1); Glucose 91 mg/dL (70-100); HEMOLYSIS < 15 (0-50); Lactate Dehydrogenase 355 U/L (313-618); Potassium 4.4 mmol/L (3.4-5.1); Sodium 138 mmol/L (137-145)
[2020-10-05 16:39] LABS: ANA Screen, IFA Negative (.)
[2020-10-06 20:12] LABS: CCP Antibodies IgG/IgA 2 units (0-19)
== END ==
PROVIDERS: PCP Family Medicine; Referring Provider Family Medicine; Visit Provider Family Medicine
DX: M54.16 Radiculopathy, lumbar region (principal); R53.83 Other fatigue; R61 Generalized hyperhidrosis; F41.0 Panic disorder [episodic paroxysmal anxiety]; F42.9 Obsessive-compulsive disorder, unspecified; F90.2 Attention-deficit hyperactivity disorder, combined type; F33.41 Major depressive disorder, recurrent, in partial remission; F41.8 Other specified anxiety disorders; F43.12 Post-traumatic stress disorder, chronic
CPT/HCPCS: 36415; 72100; 80053; 83615; 85025; 86038; 86200; 90837

== ENCOUNTER → 2022-09-18 08:36 | Outpatient (CLI) | payer OTHER, MEDICAID, SELFPAY ==
--- NOTE | 2022-09-18 08:37 | DI.RAD.S_ITS ---
PROCEDURE: XR CERVICAL SPINE 4V OR 5V INDICATIONS: neck pain TECHNIQUE: 5 views of the cervical spine acquired. COMPARISON: None. FINDINGS: Bones: No fractures or dislocations to the T1 level. Oblique images demonstrate no bony foraminal stenoses. Oblique images show widely patent neural foramina Soft tissues: No prevertebral soft tissue swelling. IMPRESSION: Normal cervical spine radiographs Approved by: Ian Mccord M.D. on 09/18/2022 at 12:20
== END ==
PROVIDERS: PCP Family Medicine; Referring Provider Anesthesiology; Visit Provider Anesthesiology
DX: M54.2 Cervicalgia (principal); M54.50 Low back pain, unspecified; G89.4 Chronic pain syndrome
CPT/HCPCS: 72050; 99214